=== PATIENT | female | born 1970 | race Caucasian/White ===

== ENCOUNTER 2021-08-01 16:20 | Emergency (ER) | payer OTHER, SELFPAY ==
[2021-08-01 16:38] VITALS: BP 120/71; PULSE 60; RESP 16; TEMP 37; O2SAT 100
--- NOTE | 2021-08-01 17:14 | ED.ABDPAIN ---
HPI - Abdominal Pain General Chief Complaint: Urogenital-Female Stated Complaint: Lt lower Abdominal Pain Time Seen by Provider: 08/01/21 16:50 Source: patient and RN notes reviewed Mode of arrival: ambulatory Limitations: no limitations History of Present Illness HPI narrative: Patient presents today complaining of a 2+ week history of left lower quadrant pain. Initially she had some nausea and one episode of vomiting, but none since then. She currently rates her pain 1/10 and has tried no [id number] treatment prior to arrival. Denies any additional symptoms currently. States she is currently going through menopause. Has not seen an [employer] in many years. MD elicited complaint: abdominal pain Related Data Home Medications Medication Instructions Recorded Confirmed No Home Medications 08/01/21 08/01/21 Allergies Allergy/AdvReac Type Severity Reaction Status Date / Time No Known Allergies Allergy Mild Verified 08/01/21 16:53 Review of Systems Review of Systems: CONSTITUTIONAL: Denies body aches, fever, chills, or sweats. EYES: Denies visual changes, redness, or discharge. ENT: Denies rhinorrhea, congestion, sore throat, or otalgia. CARDIOVASCULAR: Denies chest pain, palpitations, or edema. RESPIRATORY: Denies cough or dyspnea. GASTROINTESTINAL: Denies nausea, vomiting, or diarrhea.+ Lower quadrant abdominal pain GENITOURINARY: Denies dysuria or hematuria. SKIN: Denies rash, itching, or wounds. MUSCULOSKELETAL: Denies back pain, joint pain, or myalgia. NEUROLOGIC: Denies headache, numbness, tingling, or weakness. PSYCH: Denies depression or anxiety. PMFSH Comments At time of signature, I have reviewed and agree with nursing past medical, surgical, social and family history unless otherwise noted. Please see nursing chart for further information. There is no relevant family history pertinent to the presenting complaint Exam Narrative: GENERAL: Well-appearing, well-nourished, and in no acute distress. HEAD: Normocephalic, atraumatic. EYES: EOMI. No redness or drainage. Conjunctivae normal. ENT: Mucous membranes pink and moist. NECK: Normal AROM. Supple. No lymphadenopathy. CHEST: No respiratory distress. Clear to auscultation. HEART: Regular rate and rhythm. No murmur appreciated. Normal peripheral pulses. ABDOMEN: Soft, nondistended, normal active bowel sounds. Mild left lower quadrant abdominal tenderness without rebound or guarding. This tenderness and is in the very lower left quadrant, adjacent to the symphysis pubis. -CVAT. MUSCULOSKELETAL: No bony tenderness. EXTREMITIES: Normal range of motion. No edema. SKIN: Warm, dry, no rash. Capillary refill normal. Normal skin turgor. NEURO: No focal deficits. Alert and oriented x3. Gait steady. PSYCH: Normal affect. No signs of depression or anxiety. Course Course Emergency Course: Patient declines x-ray. Agrees with plan to follow-up outpatient for further evaluation. Vital Signs Vital signs: Vital Signs Temperature 98.6 F 08/01/21 16:38 Pulse Rate 60 08/01/21 16:38 Respiratory Rate 16 08/01/21 16:38 Blood Pressure 120/71 08/01/21 16:38 Pulse Oximetry 100 08/01/21 16:38 Temperature 98.6 F 08/01/21 16:38 Pulse Rate 60 08/01/21 16:38 Respiratory Rate 16 08/01/21 16:38 Blood Pressure 120/71 08/01/21 16:38 Pulse Oximetry 100 08/01/21 16:38 Reviewed MDM - Abdominal Pain Differential Diagnosis Differential diagnosis: Likely abdominal pain, constipation and other (Diverticulosis, ruptured ovarian cyst, ovarian cyst) Lab Data Attestation: I reviewed the patient's lab results. Labs: Urine Glucose Negative Reference Range: Negative Urine Bilirubin Negative Reference Range: Negative Urine Ketone Trace Reference Ra
== END 2021-08-01 17:25 | disposition home or self-care (01) ==
PROVIDERS: Emergency Provider Nurse Practitioner
DX: R10.32 Left lower quadrant pain (principal)
CPT/HCPCS: 81003; 99212; G0463

== ENCOUNTER → 2021-08-10 03:15 | Outpatient (CLI) | payer OTHER, SELFPAY ==
[2021-08-11 18:10] LABS: SARS-CoV-2 RNA PCR Positive
== END ==
PROVIDERS: PCP Family Medicine; Visit Provider Family Medicine
DX: U07.1 COVID-19 (principal)
CPT/HCPCS: C9803; U0003; U0005